=== PATIENT | female | born 1935 | race Caucasian/White ===

== ENCOUNTER 2021-03-29 10:06 | Inpatient (IN) | payer MEDICARE, OTHER ==
[~2021-03-29] VITALS: Ht 165 cm; Wt 63.0 kg
[2021-03-29 12:27] LABS: BASOPHIL 0.5 % (0-2); EOSINOPHIL 0.2 % (0-7); HCT 41.4 % (37.0-47.0); HGB 13.1 g/dl (12.5-16.0); LYMPHOCYTE 7.4 % (15-48); MCH 31.3 pg (25.0-31.0); MCHC 31.6 g/dL (32.0-36.0); MONOCYTE 7.5 % (0-12); MPV 10.6 fL (6.0-9.5); NEUTROPHIL 83.9 % (41-80); NRBC 0; PLT 182 K/uL (150-400); RBC 4.18 M/uL (4.20-5.40); WBC 11.4 K/uL (4.0-10.5)
[2021-03-29 12:38] LABS: ALBUMIN 3.4 g/dL (3.4-5.0); BILIRUBIN - TOTAL 0.7 mg/dL (0.2-1.0); BUN/CREAT RATIO (CALC) 31.9 RATIO; CREATININE 0.72 mg/dL (0.51-0.95); GLOBULIN (CALCULATION) 3.1 g/dL; POTASSIUM 4.4 mmol/L (3.5-5.1); TOTAL PROTEIN 6.5 g/dL (6.4-8.2)
[2021-03-29 13:32] LABS: INR 1.05 (0.9-1.2); PROTHROMBIN TIME 13.1 SECONDS (11.8-13.4)
[2021-03-29] MEDS ORDERED: NORVASC5 MG PO (15:57)
[2021-03-29] MEDS ORDERED: BYSTOLIC10 MG PO (15:58)
[2021-03-29] MEDS ORDERED: COZAAR 100MG T100 MG PO (15:59)
[2021-03-29] MEDS ORDERED: PROBIOTIC PEAR1 EACH PO (16:00)
[2021-03-29 18:28] LABS: BILIRUBIN NEGATIVE (NEGATIVE); BLOOD TRACE-INTACT Ery/uL (NEGATIVE); CLARITY CLEAR (CLEAR); COLOR YELLOW (YELLOW); GLUCOSE (U) NORMAL (NORMAL); LEUKOCYTES NEGATIVE Leu/uL (NEGATIVE); NITRITE NEGATIVE (NEGATIVE); PROTEIN NEGATIVE (NEGATIVE); UROBILINOGEN 0.2 mg/dL (0.2-1.0)
[2021-03-29 18:37] LABS: AMORPHOUS URATES CRYSTALS TRACE; BACTERIA TRACE; URINARY RBC RARE; URINARY WBC RARE
[2021-03-30 03:59] LABS: BASOPHIL 0.4 % (0-2); EOSINOPHIL 0.9 % (0-7); HCT 32.6 % (37.0-47.0); HGB 10.6 g/dl (12.5-16.0); MCH 31.6 pg (25.0-31.0); MCHC 32.5 g/dL (32.0-36.0); MCV 97.3 fL (78.0-100.0); MONOCYTE 14.8 % (0-12); NEUTROPHIL 65.6 % (41-80); NRBC 0; PLT 145 K/uL (150-400); RBC 3.35 M/uL (4.20-5.40); WBC 9.2 K/uL (4.0-10.5)
[2021-03-30 04:30] LABS: BUN/CREAT RATIO (CALC) 32.1 RATIO; CREATININE 0.78 mg/dL (0.51-0.95); POTASSIUM 3.9 mmol/L (3.5-5.1)
[2021-04-01 06:41] LABS: BASOPHIL 0.1 % (0-2); EOSINOPHIL 0 % (0-7); HCT 31.3 % (37.0-47.0); HGB 10.3 g/dl (12.5-16.0); LYMPHOCYTE 4.6 % (15-48); MCHC 32.9 g/dL (32.0-36.0); MCV 97.2 fL (78.0-100.0); MONOCYTE 10.3 % (0-12); MPV 10.4 fL (6.0-9.5); NEUTROPHIL 84.4 % (41-80); NRBC 0; PLT 139 K/uL (150-400); RBC 3.22 M/uL (4.20-5.40); RDW 14.7 % (11.5-14.0); WBC 12.7 K/uL (4.0-10.5)
[2021-04-01 07:12] LABS: CREATININE 0.71 mg/dL (0.51-0.95); POTASSIUM 4.6 mmol/L (3.5-5.1)
--- NOTE | 2021-04-01 17:06 | NUR ---
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 Clinicals have been faxed. A message was left for Sister Mesha via [employer], to report anticipated discharge for 04/02.
[2021-04-02 06:21] LABS: BASOPHIL 0.4 % (0-2); EOSINOPHIL 1.2 % (0-7); HCT 29.4 % (37.0-47.0); HGB 9.7 g/dl (12.5-16.0); LYMPHOCYTE 14.9 % (15-48); MONOCYTE 12.9 % (0-12); MPV 10.3 fL (6.0-9.5); NEUTROPHIL 70.1 % (41-80); NRBC 0; PLT 164 K/uL (150-400); RBC 3.03 M/uL (4.20-5.40); RDW 15.1 % (11.5-14.0); WBC 10.2 K/uL (4.0-10.5)
[2021-04-02 06:40] LABS: BUN/CREAT RATIO (CALC) 28.1 RATIO; CREATININE 0.64 mg/dL (0.51-0.95); POTASSIUM 3.8 mmol/L (3.5-5.1)
[2021-04-02] MEDS ORDERED: NORCO 5-325 TA1 EACH PO (11:22)
[2021-04-02] MEDS ORDERED: DULCOLAX5 MG PO (11:22)
[2021-04-02] MEDS ORDERED: ACETAMINOPHEN325 MG PO (11:22)
[2021-04-02] MEDS ORDERED: MILK OF MA400 MG/5 M PO (11:22)
[2021-04-02] MEDS ORDERED: XARELTO10 MG PO (11:22)
--- NOTE | 2021-04-02 11:42 | NUR ---
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 Call report to: [phone] ext [phone]. Fax DS to: [phone]. Report given to MS Shannon, RN.
--- NOTE | 2021-04-02 15:32 | NUR ---
REPORT CALLED TO WILIAM BARROSO AT [facility], IV REMOVED, XARELOT PO GIVEN BEFORE GOING TO RETIREMENT. PT REFUSED ALL PAIN MEDS SAID SHE WAS HAVING NO PAIN.
== END 2021-04-02 18:42 | DRG 481 ==
LOC: FER 10:06 → FMS 12:04
PROVIDERS: Internal Medicine; Legal Medicine; ADMIT Internal Medicine
PROC: 0QS604Z Reposition Right Upper Femur with Internal Fixation Device, Open Approach (ICD-10-PCS; principal; 2021-03-31 11:00)
DX: S72.141A Displaced intertrochanteric fracture of right femur, initial encounter for closed fracture (principal); F05 Delirium due to known physiological condition; G89.18 Other acute postprocedural pain; T41.45XA Adverse effect of unspecified anesthetic, initial encounter; I10 Essential (primary) hypertension; M85.80 Other specified disorders of bone density and structure, unspecified site; Z20.822 Contact with and (suspected) exposure to COVID-19; D53.9 Nutritional anemia, unspecified; G62.9 Polyneuropathy, unspecified; Z98.890 Other specified postprocedural states; Z88.8 Allergy status to other drugs, medicaments and biological substances; Z88.2 Allergy status to sulfonamides; Z79.899 Other long term (current) drug therapy
CPT/HCPCS: 36415; 71045; 73501; 73502; 76000; 80048; 80053; 81001; 85025; 85610; 85730; 93005; 94010; 96374; 97110; 97162; 97166; 97530-GP; 97535; C1713; J0697; J2704; J2795; J3010; J3360; J7030; J7040; J7120; U0002

== ENCOUNTER 2022-02-01 18:32 | Emergency (ER) | payer MEDICARE ==
[~2022-02-01 18:32] MED LIST: ACETAMINOPHEN325 MG PO; BYSTOLIC10 MG PO; COZAAR 100MG T100 MG PO; DULCOLAX5 MG PO; MILK OF MA400 MG/5 M PO; NORCO 5-325 TA1 EACH PO; NORVASC5 MG PO; PROBIOTIC PEAR1 EACH PO; XARELTO10 MG PO
[2022-02-01 19:03] LABS: BASOPHIL 0.5 % (0-2); EOSINOPHIL 0.8 % (0-7); HCT 41.9 % (37.0-47.0); HGB 13.7 g/dl (12.5-16.0); LYMPHOCYTE 10.1 % (15-48); MCH 31.1 pg (25.0-31.0); MCHC 32.7 g/dL (32.0-36.0); MCV 95.2 fL (78.0-100.0); MONOCYTE 7.1 % (0-12); MPV 10.4 fL (6.0-9.5); NEUTROPHIL 81.2 % (41-80); NRBC 0; PLT 174 K/uL (150-400); RDW 13.4 % (11.5-14.0); WBC 11.8 K/uL (4.0-10.5)
[2022-02-01 19:22] LABS: INR 1.03 (0.9-1.2); PROTHROMBIN TIME 13.2 SECONDS (11.9-13.9); PTT 28.8 SECONDS (24.9-34.6)
[2022-02-01 19:23] LABS: ALBUMIN 3.8 g/dL (3.4-5.0); BILIRUBIN - TOTAL 0.5 mg/dL (0.2-1.0); BUN/CREAT RATIO (CALC) 28.8 RATIO; CREATININE 0.8 mg/dL (0.51-0.95); GLOBULIN (CALCULATION) 3.5 g/dL; POTASSIUM 4.9 mmol/L (3.5-5.1); TOTAL PROTEIN 7.3 g/dL (6.4-8.2)
[2022-02-01 22:34] LABS: BILIRUBIN NEGATIVE (NEGATIVE); BLOOD TRACE-INTACT Ery/uL (NEGATIVE); CLARITY CLEAR (CLEAR); COLOR YELLOW (YELLOW); GLUCOSE (U) NORMAL (NORMAL); LEUKOCYTES NEGATIVE Leu/uL (NEGATIVE); NITRITE NEGATIVE (NEGATIVE); PROTEIN 2+ mg/dL (NEGATIVE); UROBILINOGEN 0.2 mg/dL (0.2-1.0)
[2022-02-01 22:51] LABS: SQUAMOUS EPITHELIAL CELLS RARE; URINARY RBC RARE; URINARY WBC RARE
== END 2022-02-02 00:21 | disposition other institution (70) ==
LOC: FER 18:32 → FMS 21:44
PROVIDERS: Emergency Medicine
DX: S42.212A Unspecified displaced fracture of surgical neck of left humerus, initial encounter for closed fracture (principal); S72.142A Displaced intertrochanteric fracture of left femur, initial encounter for closed fracture; R74.8 Abnormal levels of other serum enzymes; I10 Essential (primary) hypertension; Z88.2 Allergy status to sulfonamides; Z20.822 Contact with and (suspected) exposure to COVID-19; W01.0XXA Fall on same level from slipping, tripping and stumbling without subsequent striking against object, initial encounter; Y92.009 Unspecified place in unspecified non-institutional (private) residence as the place of occurrence of the external cause
CPT/HCPCS: 36415; 70450; 71045; 73030; 73502; 80053; 81001; 82550; 84484; 85025; 85610; 85730; 93005; 96374; 96375; 96376; J2270; J2405; U0002